=== PATIENT | female | born 1950 | race Caucasian/White ===

== ENCOUNTER 2021-01-14 06:13 | Emergency (ER) | payer MEDICARE, BC ==
[~2021-01-14] VITALS: Ht 154.9 cm; Wt 46.3 kg
--- NOTE | 2021-01-14 06:22 | NUR ---
PT BIB EMS C/O L SIDED HIP PAIN S/P HIP REPLACEMENT X2DAYS AGO. UNRELIEVED BY PRESCRIBED [place]CO. PT ALSO STATES HAVING N/V/ PLACED ON A MONITOR AND CHANGED INTO GOWN. MD WAS AT BEDSIDE FOR EVAL.
[2021-01-14] MEDS ORDERED: ONDANSETRON 4 MG TAB.RAPDIS ONE (06:41)
[2021-01-14] MEDS ORDERED: ONDANSETRON 4 MG TAB.RAPDIS SL ONE (07:00)
[2021-01-14] MEDS ORDERED: ONDA4TAB11 PO (07:21)
--- NOTE | 2021-01-14 07:29 | NUR ---
Patient discharged to home in stable condition. Written and verbal after care instructions given. Patient verbalizes understanding of instruction.
[2021-01-14 07:43] VITALS: BP 118/77
== END 2021-01-14 07:44 | disposition home or self-care (01) ==
LOC: ER 06:16
DX: R11.0 Nausea (principal); G89.18 Other acute postprocedural pain; M25.552 Pain in left hip; Z60.2 Problems related to living alone
CPT/HCPCS: 99283; Q0162